=== PATIENT | male | born 1970 | race Caucasian/White ===

== ENCOUNTER 2021-03-25 14:17 | Emergency (ER) | payer BC, SELFPAY ==
[2021-03-25 14:34] VITALS: BP 129/80; PULSE 88; RESP 16; TEMP 36.3; O2SAT 99
--- NOTE | 2021-03-25 16:02 | ED.URI ---
HPI - URI/Sore Throat General Chief Complaint: Upper Respiratory Infection Stated Complaint: COVID Time Seen by Provider: 03/25/21 16:02 Source: patient, RN notes reviewed and old records reviewed Mode of arrival: ambulatory Limitations: no limitations History of Present Illness HPI Narrative: 50 year old male who presents to [facility] care with complaints of headache, cough, scratchy throat, nasal congestion which started today. Patient reports that his family family has had COVID over and holiday. Patient states that he has had COVID and Flu vaccinations works in [employer] and needs tested before he can return to work.Patient states mild chills and body aches denies any shortness of breath has taken some Ibuprofen and Tylenol for symptoms. MD elicited complaint: nasal congestion and other (scratch throat) Onset (ago): day(s) (today this morning symptoms started) Related Data Allergies Allergy/AdvReac Type Severity Reaction Status Date / Time No Known Allergies Allergy Mild Verified 04/11/10 12:12 Review of Systems Review of Systems: CONSTITUTIONAL: Positive for fever, chills, or sweats. EYES: Denies visual changes, redness, or discharge.eyes feel itchy ENT: Positive for rhinorrhea, congestion, scratchy throat, no otalgia. CARDIOVASCULAR: Denies chest pain, palpitations, or edema. RESPIRATORY: Positive for cough denies dyspnea. GASTROINTESTINAL: Denies abdominal pain, nausea, vomiting, or diarrhea. GENITOURINARY: Denies dysuria or hematuria. SKIN: Denies rash or itching. MUSCULOSKELETAL: Denies back pain, joint pain, or myalgia. NEUROLOGIC:Positive for headache, nonumbness, or weakness. PSYCHIATRIC: Denies anxiety or depression. All systems reviewed & are unremarkable except as noted in HPI and below [facility] Social History Social History (Updated 03/26/21 @ 09:20 by Ila Torres NP) Smoking packs per day: 0.5 Smoking cigarettes per day: 10.0 Years smoked: 20 Smoking pack-years: 10.00 Smoking status: Current every day smoker Tobacco type: cigarettes Alcohol intake: current Alcohol use details: social Substance use: never Living arrangements: with family Gender identity (if verbalized by the patient): Male Comments At time of signature, agree with nursing past medical, surgical, social and family history. There is no relevant family history pertinent to the presenting complaint Exam Narrative: GENERAL: Well-appearing, well-nourished, and in no acute distress. HEAD: Normocephalic, atraumatic. EYES: PERRLA and EOMI.reports eyes feel itchy no drainage noted or pain to eyes ENT: Nares patent with clear rhinorrhea no epistaxis. Mucous membranes moist.TM's normal with good light reflex throat mild redness with no lesions or exudates, no tonsils enlargement NECK: Supple.no lymphadenopathy CHEST: Clear to auscultation. No respiratory distress.cough non productive, SAO2 99% on room air. HEART: Regular rate and rhythm. No murmur heard. Normal peripheral pulses. ABDOMEN: Soft, nontender, nondistended, normal active bowel sounds. EXTREMITIES: Normal range of motion. No edema. SKIN: Warm, dry, no rash. NEURO: No focal deficits. Alert and oriented x3. Course Course Level of Care: Express Care Visit Vital Signs Vital signs: Vital Signs Temperature 36.3 C L 03/25/21 14:34 Pulse Rate 88 03/25/21 14:34 Respiratory Rate 16 03/25/21 14:34 Blood Pressure 129/80 03/25/21 14:34 Pulse Oximetry 99 03/25/21 14:34 Temperature 36.3 C L 03/25/21 14:34 Pulse Rate 88 03/25/21 14:34 Respiratory Rate 16 03/25/21 14:34 Blood Pressure 129/80 03/25/21 14:34 Pulse Oximetry 99 03/25/21 14:34 MDM - URI/Sore Throat Differential Diagnosis Differential diagnosis: Likely upper respiratory infection, viral infection, bronchitis, influenza, pharyngitis and other (COVID-19) Medical Records Attestation: I reviewed the patient's medical records. Lab Data Attestation: I
== END 2021-03-25 16:18 | disposition home or self-care (01) ==
PROVIDERS: Emergency Provider Registered Nurse; PCP Internal Medicine
DX: U07.1 COVID-19 (principal); F17.210 Nicotine dependence, cigarettes, uncomplicated
CPT/HCPCS: 87426; 99213; C9803; G0463

== ENCOUNTER 2023-02-16 13:31 | Outpatient (CLI) | payer BC, SELFPAY ==
--- NOTE | ~2023-02-16 | CT_ITS ---
CT of the Abdomen and Pelvis: Indication: Abdominal pain Technique: 2.5 mm axial scans were obtained through the abdomen and pelvis following intravenous adm inistration of 100 cc of Omnipaque 350. Dose reduction technique was used on this scan by utilizing a utomated exposure control and iterative reconstruction technique. The dose-length product (DLP) was 6 08.93 mGy-cm. Findings: Scans through the lung bases are unremarkable. The liver, spleen, pancreas, gallbladder, and kidneys are within normal limits. There are bilateral a drenal nodule, right larger than left, indeterminate on this exam, though statistically likely adenom as. There are atherosclerotic calcifications of the aorta. No lymphadenopathy. No bowel obstruction or bowel wall thickening. There is no evidence to suggest acute appendicitis. Images through the pelvis were performed. Urinary bladder unremarkable. Prostate gland and seminal ve sicles are unremarkable. No ascites. Impression: No acute reality. Bilateral adrenal nodules, right larger than left, indeterminate, though statistically likely adenoma s. Follow-up MR could be considered to attempt to confirm. Reviewed, dictated and finalized at location M. ENGINEER Impression: No acute reality. Bilateral adrenal nodules, right larger than left, indeterminate, though statis tically likely adenomas. Follow-up MR could be considered to attempt to confirm .
== END 2023-02-16 13:32 | disposition home or self-care (01) ==
PROVIDERS: PCP Internal Medicine; Visit Provider Internal Medicine
DX: D35.01 Benign neoplasm of right adrenal gland (principal); D35.02 Benign neoplasm of left adrenal gland
CPT/HCPCS: 74177; Q9967

== ENCOUNTER 2023-03-04 09:22 | Outpatient (CLI) | payer BC, SELFPAY ==
--- NOTE | ~2023-03-04 | MR_ITS ---
EXAMINATION: MR abdomen wo/w con INDICATION: Bilateral adrenal masses on CT. TECHNIQUE: Coronal SSFSE ARC, WATER:coronal LAVA-FLEX, Coronal 2D FIESTA FatSat, Axial SSFSE BH ARC, Axial 3D DualEcho BH, Axial SSFSE-IR, Axial DWI b=500, Axial 2D FIESTA FatSat, pre and dynamic postco ntrast Axial LAVA ARC, postcontrast Coronal In and Opposed phase LAVA FLEX COMPARISON: None available CONTRAST: Multihance, 16 cc FINDINGS: The liver, spleen, and gallbladder are normal. Pancreas divisum is noted. There are masses of the adrenal glands measuring 13 mm on the right and 7 mm on the left which demonstrate loss of sig nal intensity on opposed phase imaging, consistent with adenomas. The kidneys are unremarkable. There are no pathologically enlarged abdominal lymph nodes. There are no dilated loops of bowel. There is a small umbilical hernia containing fat. There is mild dependent atelectasis of the visualized lung b ases. IMPRESSION: 1. Bilateral adrenal adenomas. Reviewed, dictated and finalized at location L. RUPTCY JUDGE
== END 2023-03-04 09:23 | disposition home or self-care (01) ==
PROVIDERS: PCP Internal Medicine; Visit Provider Internal Medicine
DX: D35.01 Benign neoplasm of right adrenal gland (principal); D35.02 Benign neoplasm of left adrenal gland
CPT/HCPCS: 74183; A9577